=== PATIENT | male | born 1950 | race Caucasian/White ===

== ENCOUNTER 2017-09-05 18:25 | Inpatient (IN) | payer MEDICARE, OTHER ==
[~2017-09-05] VITALS: Ht 170.2 cm; Wt 79.8 kg
[2017-09-05] MEDS ORDERED: ALBU8HFA4 IH (18:35)
[2017-09-05] MEDS ORDERED: FLUO10CA26 PO (18:35)
[2017-09-05] MEDS ORDERED: DOXE25CA3 PO (18:35)
[2017-09-05] MEDS ORDERED: LEVO75TA7 PO (18:35)
[2017-09-05] MEDS ORDERED: LEVO750T46 PO (18:35)
[2017-09-05] MEDS ORDERED: SERT50TA PO (18:35)
[2017-09-05] MEDS ORDERED: DISU250T7 PO (18:35)
[2017-09-05] MEDS ORDERED: FLUO40CA49 PO (18:35)
[2017-09-05] MEDS ORDERED: THIA100T13 PO (18:35)
--- NOTE | 2017-09-05 18:50 | NUR ---
PATIENT IS HERE FOR POSSIBLE ADMISSION TO MHU. HE IS AWAKE AND ALERT IN NO DISTRESS. HE IS COOPERATIVE. HE IS SITTING UP EATING A SANDWICH.
--- NOTE | 2017-09-05 19:02 | NUR ---
REPORT TAKEN FROM DAY SHIFT RN. ASSUMING PT CARE AT THIS TIME.
--- NOTE | 2017-09-05 19:16 | NUR ---
XRAY AT PT BEDSIDE.
--- NOTE | 2017-09-05 19:38 | NUR ---
Patient medically cleared by ER MD, Dr Seaman, for inpatient admission to MHU. Patient will be going to room 141A, under Dr Gomes/Dr Vogt. Dx: Psychosis. Patient is currently on 5150 hold for SI. Patient states he has an active plan but does not disclose plan to staff at this time. Per original Hold document, patient endorsed plan to hang himself to [place] upon evaluation. Patient denies HI/AH/VH at this time. Room safety assessment complete, all belongings/high risk objects removed from room. Frequent staff assessments complete. Patient continues to be observed, and remains in direct rafael of balance staff staker at all times. Cooperative and redirectable. Patient in bed, VSS. All patient needs attended and met. No acute distress at this time. Respirations even and unlabored. no SOB or congestion noted. no cardiovascular distress noted. NSR on monitor at this time. No GI/ distress noted. Patient is continent of bowel and bladder function per initial evaluation.
--- NOTE | 2017-09-05 19:54 | NUR ---
Report given to Araceli SALGUERO on MHU
--- NOTE | 2017-09-05 19:59 | NUR ---
Pt. admitted to MHU, under care of Dr. Vogt Belongs List completed
[2017-09-05 20:10] VITALS: BP 129/64
[2017-09-05] MEDS ORDERED: MAG HYDROX/AL HYDROX/SIMETH 30 ML LIQUID UDC PO PRN (21:15)
[2017-09-05] MEDS ORDERED: TEMAZEPAM 7.5 MG CAPSULE PO PRN (21:15)
[2017-09-05] MEDS ORDERED: ACETAMINOPHEN 325 MG TABLET PO PRN (21:15)
[2017-09-05 21:30] VITALS: BP 129/64
[2017-09-05] MEDS ORDERED: ALBUTEROL SULFATE 8 GM HFA.AER.AD IH PRN (22:30)
--- NOTE | 2017-09-06 03:20 | NUR ---
Patient is a 67 year old male admitted@ 1999 on [facility] Unit, 5150 status DTS. Per 5150 statement, Patient had become extremely depressed and anxious. Verbalized a plan to hang himself. During 1:1 interview, Patient affirms his suicidality. Stated :" I'm going thru too much! I have some financial problems. My first . I miss her. My current spends alot of money that we can't really afford to loose. I'm anxious about the future. I have trouble sometimes focusing on it all. I don't know what to do." Patient able to contract for safety in facility environment. Verbalized commitment to seek out staff prior to acting on any self-harmful behavior patterns. No assaultive or aggressive behavior noted or reported. Will continue to monitor. Addendum: 09/06/17 at 0801 by JADA WILCOX RN Patient affirmed his ability to seek out staff for support prior to acting on any self harm behavior patters. Refused am Thyroid medication. Stated "The Doctor hasn't spoken with my about taking that yet, and I don't think I need that medication. Patient slept 7.00 hours. Close monitoring and observations continue.
[2017-09-06] MEDS: LEVOTHYROXINE SODIUM 75 MCG TABLET PO SCH (07:03)
[2017-09-06] MEDS ORDERED: ALBUTEROL SULFATE 2.5 MG/3 ML NEBU NEB PRN (07:15)
[2017-09-06 07:30] VITALS: BP 132/64
[2017-09-06 08:08] LABS: BASOPHILS % (AUTO) 0.6 % (0.0-2.0); EOSINOPHILS # (AUTO) 0.1 K/uL (0.0-0.7); EOSINOPHILS % (AUTO) 1.4 % (0.0-7.0); HEMATOCRIT 42.6 % (36.7-47.1); HEMOGLOBIN 14.5 g/dL (12.5-16.3); LYMPHOCYTES # (AUTO) 2.7 K/uL (20.0-40.0); LYMPHOCYTES % (AUTO) 31.9 % (20.5-51.5); MEAN CORPUSCULAR HEMOGLOBIN 30.3 uug (23.8-33.4); MEAN CORPUSCULAR HGB CONC 34 g/dL (32.5-36.3); MONOCYTES # (AUTO) 0.5 K/uL (2.0-10.0); MONOCYTES % (AUTO) 6.3 % (0.0-11.0); NEUTROPHILS # (AUTO) 5.1 K/uL (1.8-8.9); NEUTROPHILS % (AUTO) 59.8 % (38.5-71.5); PLATELET COUNT (AUTO) 249 K/uL (152-348); RED BLOOD CELL COUNT(AUTO) 4.78 MIL/uL (4.06-5.63); WHITE BLOOD COUNT (AUTO) 8.6 K/uL (3.6-10.2)
[2017-09-06 08:17] LABS: BILIRUBIN,TOTAL 0.4 mg/dL (0.2-1.0); PHOSPHOROUS 3.7 mg/dL (2.5-4.9); POTASSIUM 4.6 mmol/L (3.5-5.1); TOTAL PROTEIN, SERUM 6.7 g/dL (6.4-8.2)
[2017-09-06] MEDS: THIAMINE HCL 100 MG TABLET PO SCH (08:36)
[2017-09-06 09:07] LABS: THYROID STIMULATING HORMONE 1.151 mIU/mL (0.358-3.740)
[2017-09-06] MEDS: LORAZEPAM 1 MG TABLET PO PRN (10:47)
[2017-09-06] MEDS ORDERED: SERTRALINE HCL 50 MG TABLET PO SCH (12:15)
[2017-09-06] MEDS ORDERED: FLUVOXAMINE MALEATE 25 MG TABLET PO SCH (12:30)
--- NOTE | 2017-09-06 12:32 | NUR ---
CALLED FOR CONSULT PER 'S ORDERED '
[2017-09-06] MEDS: ARIPIPRAZOLE 2 MG TABLET PO SCH (12:48)
[2017-09-06] MEDS: OXCARBAZEPINE 300 MG TABLET PO SCH ×2 (12:48→16:31)
[2017-09-06] MEDS ORDERED: FLUVOXAMINE MALEATE 50 MG TABLET PO ONE (13:30)
--- NOTE | 2017-09-06 15:30 | NUR ---
GPS: Nursing Notes: Pneumonia Vaccination: Patient stated that he received his pneumonia vaccination at [facility] on 09/04/17, patient is A/Ox4, cooperative, continue with treatment plan.
[2017-09-06 15:48] VITALS: BP 131/67
[2017-09-06] MEDS: TRAZODONE 100 MG TABLET PO SCH (20:20)
[2017-09-06 20:31] VITALS: BP 147/64
--- NOTE | 2017-09-06 21:00 | NUR ---
RECEIVED PATIENT IN HIS ROOM. HE IS A/O X 3 HE IS ABLE TO AMBULATE WITH STEADY GAIT. HE WAS NOTED WITH DEPRESSED MOOD, BLUNTED AFFECT, WITHDRAWN. HE DENIES SI AT THIS TIME. HOWEVER, HE STATED THAT HE FEELS SAD AND DEPRESSED. HE WAS ABLE TO CFS. PT ABLE TO COMPLY WITH MEDICATION REGIMENT ND PLAN OF CARE DURING THE SHIFT. WILL CONTINUE TO MONITOR CLOSELY.
[2017-09-07] MEDS: LEVOTHYROXINE SODIUM 75 MCG TABLET PO SCH (06:42)
[2017-09-07 07:30] VITALS: BP 118/55
[2017-09-07] MEDS: OXCARBAZEPINE 300 MG TABLET PO SCH ×3 (08:19→16:34)
[2017-09-07] MEDS: ARIPIPRAZOLE 2 MG TABLET PO SCH (08:19)
[2017-09-07] MEDS: THIAMINE HCL 100 MG TABLET PO SCH (08:19)
[2017-09-07] MEDS: FLUVOXAMINE MALEATE 50 MG TABLET PO SCH (08:20)
--- NOTE | 2017-09-07 14:04 | NUR ---
Firearms Reporting: MARELY submitted Mental Health Report to [facility] on 09/07.
[2017-09-07 15:56] VITALS: BP 138/67
[2017-09-07 19:52] VITALS: BP 157/67
[2017-09-07] MEDS: TRAZODONE 100 MG TABLET PO SCH (20:01)
--- NOTE | 2017-09-07 22:00 | NUR ---
received to care, watching tv, pleasant upon approach. continues to deny suicidal ideations, but admits to feeling depressed. compliant with medications, and staff direction. as of 2199, he appears to be asleep. no distress noted. will continue to monitor closely.
--- NOTE | 2017-09-08 06:00 | NUR ---
slept 6.5 hours total. no distress noted.
[2017-09-08] MEDS: LEVOTHYROXINE SODIUM 75 MCG TABLET PO SCH (06:46)
[2017-09-08 07:30] VITALS: BP 117/65
[2017-09-08] MEDS: ARIPIPRAZOLE 2 MG TABLET PO SCH (08:38)
[2017-09-08] MEDS: OXCARBAZEPINE 300 MG TABLET PO SCH ×3 (08:38→17:23)
[2017-09-08] MEDS: THIAMINE HCL 100 MG TABLET PO SCH (08:39)
[2017-09-08] MEDS: FLUVOXAMINE MALEATE 50 MG TABLET PO SCH (08:39)
--- NOTE | 2017-09-08 10:39 | NUR ---
Initial DC Plan: Patient currently lives at home with his Gayla [[address] [place] [address]; [phone]]. SW will follow up with MD, patient, and patient's to discuss most appropriate discharge plans. SW will form a safe and proper discharge.
[2017-09-08] MEDS: LORAZEPAM 1 MG TABLET PO PRN (13:00)
[2017-09-08 17:08] VITALS: BP 139/68
[2017-09-08 20:00] VITALS: BP 139/60
[2017-09-08] MEDS: TRAZODONE 100 MG TABLET PO SCH (20:50)
--- NOTE | 2017-09-08 22:00 | NUR ---
received to care, sitting in his room, pleasant upon approach. continues to deny suicidal ideations, but admits to feeling depressed. compliant with medications, and staff direction. interacts minimally, with peers. as of 2199, he appears to be asleep. no distress noted. will continue to monitor closely.
[2017-09-09] MEDS: LEVOTHYROXINE SODIUM 75 MCG TABLET PO SCH (06:34)
[2017-09-09 07:30] VITALS: BP 127/70
--- NOTE | 2017-09-09 07:45 | NUR ---
RECEIVED PATIENT IN HIS ROOM. HE IS A/O X 3 HE IS ABLE TO AMBULATE WITH STEADY GAIT. NO SUICIDAL IDEATION NOTED PT ABLE TO COMPLY WITH MEDICATION REGIMENT ND PLAN OF CARE DURING THE SHIFT. WILL CONTINUE TO MONITOR CLOSELY.
[2017-09-09] MEDS: ARIPIPRAZOLE 5 MG TABLET PO SCH (08:16)
[2017-09-09] MEDS: THIAMINE HCL 100 MG TABLET PO SCH (08:16)
[2017-09-09] MEDS: FLUVOXAMINE MALEATE 50 MG TABLET PO SCH (08:16)
[2017-09-09] MEDS: OXCARBAZEPINE 300 MG TABLET PO SCH ×3 (08:16→16:05)
[2017-09-09] MEDS ORDERED: ARIPIPRAZOLE 2 MG TABLET PO SCH (09:00)
--- NOTE | 2017-09-09 10:59 | NUR ---
WATCHING TV NO C/O DEPRESSION OR ANY SUICIDAL IDEATION
[2017-09-09 16:00] VITALS: BP 131/64
[2017-09-09 20:00] VITALS: BP 117/55
[2017-09-09] MEDS: TRAZODONE 100 MG TABLET PO SCH (20:45)
[2017-09-10] MEDS: LEVOTHYROXINE SODIUM 75 MCG TABLET PO SCH (06:47)
[2017-09-10 07:30] VITALS: BP 127/70
[2017-09-10] MEDS ORDERED: FLUVOXAMINE MALEATE 50 MG TABLET PO SCH (09:00)
[2017-09-10] MEDS: ARIPIPRAZOLE 5 MG TABLET PO SCH (10:42)
[2017-09-10] MEDS: THIAMINE HCL 100 MG TABLET PO SCH (10:43)
[2017-09-10] MEDS: OXCARBAZEPINE 300 MG TABLET PO SCH ×3 (10:43→17:35)
[2017-09-10 15:47] VITALS: BP 153/65
--- NOTE | 2017-09-10 16:00 | NUR ---
Gps/Call Center Coordinator- Attends and participates in his group therapy, cooperative with staff, encouraged continued verbalizations of his feelings and needs, medication compliant.
--- NOTE | 2017-09-10 19:30 | NUR ---
Received patient from day shift nurse. Patient currently lying in bed comfortably with no signs of pain, sob, or acute distress. Pertinent assessment completed. On a 14 day hold. Currently no signs of depression or anxiety noted. Appears to be compliant. Vital signs WNL. Will continue to monitor through shift.
[2017-09-10 20:31] VITALS: BP 134/72
[2017-09-10] MEDS: TRAZODONE 100 MG TABLET PO SCH (21:00)
[2017-09-10] MEDS: MAGNESIUM HYDROXIDE 30 ML LIQUID UDC PO PRN (21:01)
[2017-09-11 07:30] VITALS: BP 134/68
[2017-09-11] MEDS: FLUVOXAMINE MALEATE 50 MG TABLET PO SCH (08:08)
[2017-09-11] MEDS: THIAMINE HCL 100 MG TABLET PO SCH (08:08)
[2017-09-11] MEDS: LEVOTHYROXINE SODIUM 75 MCG TABLET PO SCH (08:08)
[2017-09-11] MEDS: ARIPIPRAZOLE 5 MG TABLET PO SCH (08:08)
[2017-09-11] MEDS: OXCARBAZEPINE 300 MG TABLET PO SCH ×3 (08:08→17:07)
--- NOTE | 2017-09-11 10:03 | NUR ---
patient noted sitting in activities eating breakfast and watch TV, denies pain at this time, no signs of distress noted, took all AM medications, all needs met at this time, no behaviors noted
[2017-09-11] MEDS: LORAZEPAM 1 MG TABLET PO PRN (14:02)
[2017-09-11 15:00] VITALS: BP 154/68
--- NOTE | 2017-09-11 15:00 | NUR ---
Gps/Product/Device Technologist- Verbalized feelings of being anxious, requested anti anxiety pill, encouraged participation in his group therapy, encouraged continued verbalizations of his feelings .
--- NOTE | 2017-09-11 19:30 | NUR ---
Received patient from day shift nurse. Patient currently sitting in dining room at start of shift. No current signs of pain, sob, or acute distress noted. Pertinent assessment completed. Patient is alert, awake, oriented, and compliant. No signs or thoughts of suicidal ideation noted. patient stated that he still feels anxious at times and is concerned to go home. Patient stated that he has "many things in life that causes him stress". patient wants to talk with the doctor about his meds. Room checked for safety at start of shift. Bed in low position. Alarm on and checked. Will continue to monitor through shift.
[2017-09-11] MEDS: TRAZODONE 100 MG TABLET PO SCH (20:45)
[2017-09-11 21:49] VITALS: BP 140/64
[2017-09-12] MEDS: LEVOTHYROXINE SODIUM 75 MCG TABLET PO SCH (06:08)
--- NOTE | 2017-09-12 06:17 | NUR ---
Patient slept total of 9 hours through the night. No acute distress noted. No signs of suicidal ideation noted at this time. All needs attended to. All meds administered as ordered per MD. Safety measures implemented. Will endorse to day shift nurse.
[2017-09-12 07:30] VITALS: BP 128/53
[2017-09-12] MEDS: OXCARBAZEPINE 300 MG TABLET PO SCH ×3 (08:07→17:25)
[2017-09-12] MEDS: THIAMINE HCL 100 MG TABLET PO SCH (08:07)
[2017-09-12] MEDS: ARIPIPRAZOLE 5 MG TABLET PO SCH (08:09)
[2017-09-12] MEDS: FLUVOXAMINE MALEATE 50 MG TABLET PO SCH (08:09)
[2017-09-12] MEDS: LORAZEPAM 1 MG TABLET PO PRN (10:50)
--- NOTE | 2017-09-12 10:54 | NUR ---
Gps/Computer Customer Support Specialist- Noted extremely anxious , figity, shaky , ativan 1 mg 1 tab.po administered, encouraged to continue attending his group therapy, encouraged verbalizations of his feelings and needs. Continue the need to monitor patient for safety.
[2017-09-12 15:00] VITALS: BP 134/71
[2017-09-12 20:27] VITALS: BP 157/74
[2017-09-12] MEDS: TRAZODONE 100 MG TABLET PO SCH (21:07)
[2017-09-12] MEDS: MAGNESIUM HYDROXIDE 30 ML LIQUID UDC PO PRN (21:07)
--- NOTE | 2017-09-13 06:43 | NUR ---
Patient first observed in room laying in bed with fair appearance. Alert, oriented to person, time, place and situation. Appears to have a low mood and exhibits a flat affect. Patient compliant with medication, requested milk of magnesia to follow up with outcome. Continue to provide a safe environment as well monitor for safety. Patient slept a total of seven hours.
[2017-09-13] MEDS: LEVOTHYROXINE SODIUM 75 MCG TABLET PO SCH (06:55)
[2017-09-13 08:00] VITALS: BP 123/67
[2017-09-13] MEDS: ARIPIPRAZOLE 5 MG TABLET PO SCH (08:58)
[2017-09-13] MEDS: FLUVOXAMINE MALEATE 50 MG TABLET PO SCH (08:58)
[2017-09-13] MEDS: THIAMINE HCL 100 MG TABLET PO SCH (08:59)
[2017-09-13] MEDS: OXCARBAZEPINE 300 MG TABLET PO SCH ×3 (08:59→16:29)
--- NOTE | 2017-09-13 09:45 | NUR ---
Gps/Recreation Therapist- Attends and participates in hes group therapy .Compliant with her routine medications. Verbalized feelings of being anxious, offered prn, refused at this time, claimed he will try to attend his group therapy , to keep his mind of things. Monitor closely for safety.
[2017-09-13 16:32] VITALS: BP 137/68
[2017-09-13] MEDS: LORAZEPAM 1 MG TABLET PO PRN (19:46)
[2017-09-13 20:00] VITALS: BP 148/80
[2017-09-13] MEDS: TRAZODONE 100 MG TABLET PO SCH (21:12)
[2017-09-14] MEDS: LEVOTHYROXINE SODIUM 75 MCG TABLET PO SCH (06:28)
[2017-09-14 07:30] VITALS: BP 129/71
[2017-09-14] MEDS: OXCARBAZEPINE 300 MG TABLET PO SCH ×3 (09:19→16:52)
[2017-09-14] MEDS: FLUVOXAMINE MALEATE 50 MG TABLET PO SCH (09:19)
[2017-09-14] MEDS: ARIPIPRAZOLE 5 MG TABLET PO SCH (09:19)
[2017-09-14] MEDS: THIAMINE HCL 100 MG TABLET PO SCH (09:21)
[2017-09-14 15:13] VITALS: BP 137/65
[2017-09-14 20:00] VITALS: BP 144/73
[2017-09-14] MEDS: TRAZODONE 100 MG TABLET PO SCH (20:34)
--- NOTE | 2017-09-14 22:59 | NUR ---
RECEIVED PATIENT IN BED AWAKE IN HIS ROOM.A/O X3 PATIENT IS AMBULATORY, IS EASILY AGITATED. PATIENT IS HAVING THOUGHTS OF OCD, "I AM TRYING TO CONTROL WITHOUT MEDICATION." PATIENT REMAINS ISOLATIVE/WITHDRAWN ENCOURAGED TO EXPRESS FEELINGS AND CONCERNS. NO BEHAVIOR ISSUES NOTED, NO AGGRESSIVE OR COMBATIVE NOTED WILL CONTINUE TO MONITOR. PATIENT COMPLAINT WITH MEDICATION.
[2017-09-15] MEDS: LEVOTHYROXINE SODIUM 75 MCG TABLET PO SCH (06:18)
[2017-09-15 07:30] VITALS: BP 143/65
[2017-09-15] MEDS ORDERED: ARIPIPRAZOLE 10 MG TABLET PO SCH (09:00)
[2017-09-15] MEDS ORDERED: ARIPIPRAZOLE 5 MG TABLET PO SCH (09:00)
[2017-09-15] MEDS ORDERED: FLUVOXAMINE MALEATE 50 MG TABLET PO SCH (09:00)
--- NOTE | 2017-09-15 09:41 | NUR ---
DC Note: Patient will be discharged home [[address] [place] [address]; [phone]] via private transportation. SW spoke with patients [id number] Jennifer [[phone]] who stated patients Gayla will last picker patient around 12:30pm. Patient is aware and agreeable to discharge plans. Patient is alert and oriented x4 and denies current SI and HI. Patient will follow up with his psychiatrist Dr. Reyes [[address] [place] [id number]; ] and billet cutter Dr. Hawk [[address] [facility] [place] [address]; ]. Patient has an appointment with his psychiatrist Dr. Reyes on September 22 at 4pm. Patient was provided additional outpatient mental health referrals to [facility] [[phone]], [facility] [ ], and [facility] [[phone]].
[2017-09-15] MEDS: OXCARBAZEPINE 300 MG TABLET PO SCH ×2 (09:59→13:44)
[2017-09-15] MEDS: THIAMINE HCL 100 MG TABLET PO SCH (10:00)
[2017-09-15 10:41] VITALS: BP 143/65
--- NOTE | 2017-09-15 14:00 | NUR ---
GPS: Nursing Notes: Discharge Notes: Patient is awake and responding to his name, cooperative with nursing care, compliant with his medications, denies any SI/HI, denies any AH/VH, denies any pain or discomfort, denies any SOB, discharge home with his , Gayla at [address] [place] [address] , picked up by his - Gayla, instruction and prescriptions given to his , transported home via private vehicle. Patient will follow up with his psychiatrist Dr. Reyes [[address] [place] [id number]; ] and side guider Dr. Hawk [[address] [facility] [address] [facility] [place] [address]; ]. Patient has an appointment with his psychiatrist Dr. Reyes on September 22 at 4pm. Patient was provided additional outpatient mental health referrals to [facility] [[phone]], [facility] [ ], and [facility] Crisis Line [[phone]].
== END 2017-09-15 14:00 | disposition home or self-care (01) | DRG 885 ==
LOC: ER 18:27 → GPS 19:44
PROVIDERS: ADMIT Psychiatry & Neurology Psychiatry; ATTEND Internal Medicine
DX: F31.4 Bipolar disorder, current episode depressed, severe, without psychotic features (principal); E83.52 Hypercalcemia; E03.9 Hypothyroidism, unspecified; F42.8 Other obsessive-compulsive disorder; Z79.899 Other long term (current) drug therapy; E66.9 Obesity, unspecified; Z68.27 Body mass index [BMI] 27.0-27.9, adult
CPT/HCPCS: 36415; 71045; 82306; 83735; 84100; 84443; 85025; 93005; A4663

== ENCOUNTER 2018-01-12 11:45 | Inpatient (IN) | payer MEDICARE, BC ==
[~2018-01-12] VITALS: Ht 167.6 cm; Wt 70.8 kg
[~2018-01-12 11:45] MED LIST: DISU250T7 PO; LEVO750T46 PO; LEVO75TA7 PO; SERT50TA PO; THIA100T13 PO
--- NOTE | 2018-01-12 12:04 | NUR ---
PT IS IN ROOM #2B. DR MCDUFFIE EVALUATED THE PT.
--- NOTE | 2018-01-12 12:04 | NUR ---
IZZY OFFICERS BROUGHT PT TO [facility] ER. PT'S HOLD WAS WRITTEN BY IZZY OFFICER.
[2018-01-12] MEDS ORDERED: OLANZAPINE 5 MG TABLET PO ONE (12:15)
[2018-01-12] MEDS ORDERED: CETIRIZINE HCL 10 MG TABLET ONE (12:23)
[2018-01-12 12:34] LABS: BASOPHILS # (AUTO) 0.1 K/uL (0.0-8.0); BASOPHILS % (AUTO) 0.5 % (0.0-2.0); EOSINOPHILS # (AUTO) 0.1 K/uL (0.0-0.7); EOSINOPHILS % (AUTO) 0.7 % (0.0-7.0); HEMATOCRIT 42.1 % (36.7-47.1); LYMPHOCYTES # (AUTO) 2.4 K/uL (20.0-40.0); MEAN CORPUSCULAR HGB CONC 36 g/dL (32.5-36.3); MEAN CORPUSCULAR VOLUME 87.2 fL (73.0-96.2); MONOCYTES # (AUTO) 0.5 K/uL (2.0-10.0); MONOCYTES % (AUTO) 4.7 % (0.0-11.0); NEUTROPHILS # (AUTO) 7.5 K/uL (1.8-8.9); NEUTROPHILS % (AUTO) 71.1 % (38.5-71.5); PLATELET COUNT (AUTO) 284 K/uL (152-348); RED BLOOD CELL COUNT(AUTO) 4.83 MIL/uL (4.06-5.63); WHITE BLOOD COUNT (AUTO) 10.5 K/uL (3.6-10.2)
[2018-01-12 12:36] LABS: CARBON DIOXIDE 24 mmol/L (21-32); CHLORIDE 100 mmol/L (98-107); CREATININE 0.9 mg/dL (0.6-1.3); GLUCOSE 130 mg/dL (74-106); UREA NITROGEN, BLOOD 9 mg/dL (7-18)
[2018-01-12 12:38] LABS: ETHANOL < 3 MG/DL (0-0)
[2018-01-12 12:42] LABS: ACETAMINOPHEN < 2.0 ug/mL (10-30); ALANINE AMINOTRANSFERASE 59 U/L (16-63); ALKALINE PHOSPHATASE 167 U/L (50-136); ASPARTATE AMINOTRANSFERASE 24 U/L (15-37); BILIRUBIN,DIRECT 0.2 mg/dL (0.0-0.2); BILIRUBIN,TOTAL 0.6 mg/dL (0.2-1.0); TOTAL PROTEIN, SERUM 7.3 g/dL (6.4-8.2)
[2018-01-12] MEDS ORDERED: MAGN400O6 PO (12:48)
[2018-01-12] MEDS ORDERED: DOCU100C36 PO (12:48)
[2018-01-12] MEDS ORDERED: ALLO300T2 PO (12:48)
[2018-01-12] MEDS ORDERED: ATOR20TA PO (12:48)
[2018-01-12] MEDS ORDERED: ACET325T53 PO (12:48)
[2018-01-12] MEDS ORDERED: PANT40TA2 PO (12:48)
[2018-01-12] MEDS ORDERED: QUET25TA PO ×2 (12:48)
[2018-01-12] MEDS ORDERED: LAMO100T PO (12:48)
[2018-01-12] MEDS ORDERED: ESCI10TA PO (12:48)
[2018-01-12] MEDS ORDERED: SENN-22 PO (12:48)
[2018-01-12] MEDS ORDERED: OXCA600T5 PO (12:48)
--- NOTE | 2018-01-12 13:08 | NUR ---
PATIENT IS MEDICALLY CLEARED
--- NOTE | 2018-01-12 13:18 | NUR ---
Pt. admitted to MHU , under care of / DIO Belongs List completed.
--- NOTE | 2018-01-12 13:35 | NUR ---
REPORT GIVEN TO RN MHU. PT WAS TRANSFERED TO ROOM #137B.
--- NOTE | 2018-01-12 13:39 | NUR ---
ACCORDING TO REGAN FROM [facility] INTAKE OFFICE ADMITTING PSYCHIATRIST IS DR MADDEN.
[2018-01-12] MEDS ORDERED: MAG HYDROX/AL HYDROX/SIMETH 30 ML LIQUID UDC PO PRN (14:45)
[2018-01-12 15:32] VITALS: BP 148/78
--- NOTE | 2018-01-12 16:02 | NUR ---
GPS: Nursing Notes: Severe Agitation/Anxiety: Patient awake and pacing around the unit, poor anger management, resistant with nursing care, feeling frustrated, stating, "I do not want to be here... I cannot help it...", anxious affect, restless, unable to follow directions, setting limits, "I need help..", Dr. Julian carrillo, continue with treatment plan.
[2018-01-12] MEDS: ESCITALOPRAM OXALATE 10 MG TABLET PO SCH (16:12)
[2018-01-12] MEDS: MAGNESIUM HYDROXIDE 30 ML LIQUID UDC PO PRN (16:12)
[2018-01-12] MEDS: CLONAZEPAM 0.5 MG TABLET PO PRN (16:13)
[2018-01-12] MEDS ORDERED: OLANZAPINE 10 MG VIAL IM STA (16:22)
[2018-01-12] MEDS ORDERED: LORAZEPAM 2 MG/1 ML VIAL IM STA (16:22)
--- NOTE | 2018-01-12 16:44 | NUR ---
GPS: Nursing Notes: Chemical Restraint: Continue to be loud and angry affect, feeling frustrated, stating "I do not want to be here..", episodes of shouting, overly disruptive, restless, seating down and rocking his body on the chair, anxious affect, medicated with Zyprexa 5mg IM and Ativan 1mg IM STAT, R=18, continue to monitor patient, continue with treatment plan.
--- NOTE | 2018-01-12 17:14 | NUR ---
GPS: Nursing Notes: Reassessment of Chemical Restraint: Patient is awake and responding to his name, patient is calmed, following staff directions, cooperative with nursing care at this time, continue to monitor for safety, R=18, continue with treatment plan.
--- NOTE | 2018-01-12 19:40 | NUR ---
RECEIVED PATIENT IN HIS ROOM ASLEEP. HOWEVER, EASILY AROUSABLE. REFUSED TO ANSWER ANY QUESTIONS AND WHEN BACK TO SLEEP. SAFETY WAS EMPHASIS. BED AT LOWEST POSITION WITH WHEELS LOCKED, BED ALARM ON AND FREQUENT HEAD CHECKS. WILL CONTINUE TO MONITOR CLOSELY.
[2018-01-12 20:00] VITALS: BP 125/72
[2018-01-12] MEDS: OLANZAPINE 5 MG TABLET PO SCH (21:00)
--- NOTE | 2018-01-12 22:00 | NUR ---
ZYPREXA 5MG PO QHS WAS HELD DUE TO PATIENT IS ASLEEP. WILL CONTINUE TO MONITOR CLOSELY.
[2018-01-13 07:30] VITALS: BP 134/69
[2018-01-13] MEDS: ESCITALOPRAM OXALATE 10 MG TABLET PO SCH (08:26)
--- NOTE | 2018-01-13 10:03 | NUR ---
PATIENT RESTING IN BED, AWAKE. COOPERATIVE WITH MEDICATION. HE IS CONCERN ABOUT HIS REGULAR MEDICATION. WILL FOLLOW UP WITH MD TO RECONCILE MEDICATION. SAFETY AND COMFORT PROVIDED. WILL CONTINUE MONITORING.
[2018-01-13] MEDS ORDERED: ALLOPURINOL 300 MG TABLET PO SCH (10:30)
[2018-01-13] MEDS ORDERED: OXCA600T5 PO (10:47)
[2018-01-13] MEDS ORDERED: LAMO100T PO (10:48)
[2018-01-13] MEDS: PANTOPRAZOLE SODIUM 40 MG TABLET.DR PO SCH (11:15)
[2018-01-13] MEDS: DOCUSATE SODIUM 100 MG CAPSULE PO SCH (11:16)
[2018-01-13] MEDS: LEVOTHYROXINE SODIUM 75 MCG TABLET PO SCH (11:16)
[2018-01-13] MEDS: ALLOPURINOL 300 MG TABLET PO SCH (13:22)
[2018-01-13 15:10] LABS: *BILIRUBIN,URIN NEGATIVE (NEGATIVE); *BLOOD, URINE NEGATIVE (NEGATIVE); *CLARITY,URINE CLEAR (CLEAR); *COLOR,URINE YELLOW (YELLOW); *KETONES,URINE NEGATIVE (NEGATIVE); *PROTEIN,URINE NEGATIVE (NEGATIVE); *UROBILINOGEN,URINE 0.2 E.U./dl (NORMAL); LEUKOCYTE ESTERASE ,URINE TRACE (NEGATIVE); NITRITE, URINE NEGATIVE (NEGATIVE); PH,URINE 7.5 (5.0-8.0); UGLUCOSE NEGATIVE (NEGATIVE)
[2018-01-13 16:06] VITALS: BP 136/67
[2018-01-13] MEDS: CEPHALEXIN MONOHYDRATE 500 MG CAPSULE PO SCH ×2 (17:09→21:15)
[2018-01-13] MEDS ORDERED: LAMOTRIGINE 100 MG TABLET PO ONE (17:45)
[2018-01-13] MEDS: CLONAZEPAM 0.5 MG TABLET PO PRN (17:55)
--- NOTE | 2018-01-13 17:59 | NUR ---
PATIENT BEEN IN BED AWAKE, AND WALKING AROUND THE UNIT DURING THE DAY. COMPLIANT WITH MEDICATIONS. CALLED [facility] TO GET HIS USUAL MEDICATION, IT WAS ENTERED IN THE COMPUTER. PATIENT WAS WORRIED ABOUT NOT GETTING HIS MEDICATION TODAY, HE STATED IF DOES NOT GET IT EVERYDAY, HE MIGHT GET A RASH ON HIS FACE. MICHAEL, CHARGE NURSE FOLLOW UP WITH DR. CAMACHO ABOUT PSYCH MED RECONCILIATION. IT WAS CONSENTED BY DR. COULTER. ONE DOSE OF LAMICTAL WAS GIVEN. PATIENT NOW BECAME ANXIOUS SAYING THAT HE WANTS TO SCREAM, "IM HAVING TO MANY PROBLEMS" HE IS CONCERN OF HIS FINANCIAL SITUATION BECAUSE HE IS BEEN IN AND OUT DIFFERENT FACILITIES. I GAVE HIM CLONOPIN FOR ANXIETY. WILL CONTINUE MONITORING.
[2018-01-13 20:25] VITALS: BP 105/62
[2018-01-13] MEDS: OLANZAPINE 5 MG TABLET PO SCH (21:15)
[2018-01-13] MEDS: ATORVASTATIN 20 MG TABLET PO SCH (21:15)
[2018-01-13] MEDS: SENNOSIDES/DOCUSATE SODIUM TABLET PO SCH (21:15)
[2018-01-13] MEDS: TEMAZEPAM 7.5 MG CAPSULE PO PRN (22:27)
[2018-01-14] MEDS: PANTOPRAZOLE SODIUM 40 MG TABLET.DR PO SCH (06:32)
[2018-01-14] MEDS: LEVOTHYROXINE SODIUM 75 MCG TABLET PO SCH (06:32)
[2018-01-14] MEDS: CEPHALEXIN MONOHYDRATE 500 MG CAPSULE PO SCH ×3 (06:32→21:53)
[2018-01-14 07:30] VITALS: BP 111/63
[2018-01-14 08:43] LABS: BASOPHILS % (AUTO) 0.6 % (0.0-2.0); EOSINOPHILS # (AUTO) 0.2 K/uL (0.0-0.7); HEMATOCRIT 41.9 % (36.7-47.1); HEMOGLOBIN 14.6 g/dL (12.5-16.3); LYMPHOCYTES # (AUTO) 2.4 K/uL (20.0-40.0); LYMPHOCYTES % (AUTO) 32.4 % (20.5-51.5); MEAN CORPUSCULAR HGB CONC 35 g/dL (32.5-36.3); MEAN CORPUSCULAR VOLUME 89.1 fL (73.0-96.2); MONOCYTES # (AUTO) 0.5 K/uL (2.0-10.0); MONOCYTES % (AUTO) 6.1 % (0.0-11.0); NEUTROPHILS # (AUTO) 4.4 K/uL (1.8-8.9); NEUTROPHILS % (AUTO) 58.9 % (38.5-71.5); PLATELET COUNT (AUTO) 259 K/uL (152-348); WHITE BLOOD COUNT (AUTO) 7.5 K/uL (3.6-10.2)
[2018-01-14 08:55] LABS: BILIRUBIN,TOTAL 0.4 mg/dL (0.2-1.0); MAGNESIUM 2.1 mg/dL (1.8-2.4); PHOSPHOROUS 3.9 mg/dL (2.5-4.9); POTASSIUM 4.1 mmol/L (3.5-5.1); TOTAL PROTEIN, SERUM 6.8 g/dL (6.4-8.2)
[2018-01-14 09:05] LABS: THYROID STIMULATING HORMONE 0.98 mIU/mL (0.358-3.740)
[2018-01-14] MEDS: ESCITALOPRAM OXALATE 10 MG TABLET PO SCH (09:08)
[2018-01-14] MEDS: LAMOTRIGINE 100 MG TABLET PO SCH (09:08)
[2018-01-14] MEDS: ALLOPURINOL 300 MG TABLET PO SCH (09:08)
[2018-01-14] MEDS: DOCUSATE SODIUM 100 MG CAPSULE PO SCH (09:08)
[2018-01-14] MEDS ORDERED: LORAZEPAM 2 MG/1 ML VIAL IM ONE (12:00)
--- NOTE | 2018-01-14 12:00 | NUR ---
Gps/School Admissions Representative- Patient noted pacing walking briskly around the hallway, walking back and fort , both arms are stiff,straight , and yelling and loud , difficulty in christiano for his safety, not re directable, Unix Administrator notified Psychiatrist, orders received.,(ativan 1 mg IM).
[2018-01-14 16:00] VITALS: BP 138/74
--- NOTE | 2018-01-14 17:00 | NUR ---
Gps/Statement Clerks Supervisor- Patient was quiet this pm. observed, attending group , and watching TV, compliant, was redirectable.
[2018-01-14] MEDS: SENNOSIDES/DOCUSATE SODIUM TABLET PO SCH (21:00)
[2018-01-14 21:41] VITALS: BP 102/57
[2018-01-14] MEDS: ATORVASTATIN 20 MG TABLET PO SCH (21:53)
[2018-01-14] MEDS: OLANZAPINE 5 MG TABLET PO SCH (21:53)
[2018-01-15] MEDS: CEPHALEXIN MONOHYDRATE 500 MG CAPSULE PO SCH (06:11)
[2018-01-15] MEDS: LEVOTHYROXINE SODIUM 75 MCG TABLET PO SCH (06:11)
[2018-01-15] MEDS: PANTOPRAZOLE SODIUM 40 MG TABLET.DR PO SCH (06:11)
[2018-01-15 07:30] VITALS: BP 112/67
[2018-01-15 08:26] VITALS: BP 112/67
[2018-01-15] MEDS: LAMOTRIGINE 100 MG TABLET PO SCH (08:48)
[2018-01-15] MEDS: ESCITALOPRAM OXALATE 10 MG TABLET PO SCH (08:48)
[2018-01-15] MEDS: ALLOPURINOL 300 MG TABLET PO SCH (08:48)
[2018-01-15] MEDS: DOCUSATE SODIUM 100 MG CAPSULE PO SCH (08:48)
[2018-01-15] MEDS: CLONAZEPAM 0.5 MG TABLET PO PRN (08:57)
[2018-01-15 09:29] LABS: *AMPHETAMINE, URINE NEGATIVE (NEGATIVE); *BARBITURATE, URINE NEGATIVE (NEGATIVE); *CANNABINOID, URINE NEGATIVE (NEGATIVE); *COCCAINE, URINE NEGATIVE (NEGATIVE); *OPIATE, URINE NEGATIVE (NEGATIVE); *PHENCYCLIDINE SCREEN,URINE NEGATIVE (NEGATIVE)
--- NOTE | 2018-01-15 14:12 | NUR ---
Gps/Director Of Home Care Hospice B/P 133/86 HR 90, resp. 18 02 sat 96%. 3 staff to assist in taking her vital signs, patient had been refusing. Boost drinks supplements offered , noted patient responding fairly well to her daughter 's instructions on the phone.
--- NOTE | 2018-01-15 14:17 | NUR ---
Initial DC Plan: Patient currently resides at [facility] [[address] [place] [address]; ]. MARELY spoke with Shantal from [facility] who stated they cannot accept patient back. MARELY will follow up with MD, patient, and patient's Gayla [[phone]] to discuss most appropriate discharge plans. MARELY will form a safe and proper discharge.
[2018-01-15] MEDS: AMPICILLIN 500 MG CAPSULE PO SCH ×2 (15:23→19:13)
[2018-01-15 15:49] VITALS: BP 98/54
[2018-01-15 17:32] LABS: *BILIRUBIN,URIN NEGATIVE (NEGATIVE); *BLOOD, URINE NEGATIVE (NEGATIVE); *CLARITY,URINE CLEAR (CLEAR); *KETONES,URINE NEGATIVE (NEGATIVE); *PROTEIN,URINE NEGATIVE (NEGATIVE); *UROBILINOGEN,URINE 0.2 E.U./dl (NORMAL); LEUKOCYTE ESTERASE ,URINE NEGATIVE (NEGATIVE); NITRITE, URINE NEGATIVE (NEGATIVE); UGLUCOSE NEGATIVE (NEGATIVE)
[2018-01-15 17:41] LABS: *COLOR,URINE LIGHT YELLOW (YELLOW)
[2018-01-15 17:42] LABS: WBC,URINE 0-3 /HPF (0-3)
[2018-01-15] MEDS: ATORVASTATIN 20 MG TABLET PO SCH (20:41)
[2018-01-15] MEDS: OLANZAPINE 5 MG TABLET PO SCH (20:41)
[2018-01-15] MEDS: SENNOSIDES/DOCUSATE SODIUM TABLET PO SCH (20:42)
[2018-01-15 21:46] VITALS: BP 118/65
[2018-01-15] MEDS: TEMAZEPAM 7.5 MG CAPSULE PO PRN (23:54)
[2018-01-16] MEDS: AMPICILLIN 500 MG CAPSULE PO SCH ×2 (00:22→06:26)
[2018-01-16] MEDS: CLONAZEPAM 0.5 MG TABLET PO PRN ×3 (00:38→16:03)
[2018-01-16] MEDS: LEVOTHYROXINE SODIUM 75 MCG TABLET PO SCH (06:26)
[2018-01-16] MEDS: PANTOPRAZOLE SODIUM 40 MG TABLET.DR PO SCH (06:26)
[2018-01-16 07:30] VITALS: BP 131/76
[2018-01-16] MEDS: ESCITALOPRAM OXALATE 10 MG TABLET PO SCH (08:28)
[2018-01-16] MEDS: DOCUSATE SODIUM 100 MG CAPSULE PO SCH (08:29)
[2018-01-16] MEDS: LAMOTRIGINE 100 MG TABLET PO SCH (08:29)
[2018-01-16] MEDS: ALLOPURINOL 300 MG TABLET PO SCH (08:29)
[2018-01-16 15:43] VITALS: BP 120/63
--- NOTE | 2018-01-16 19:40 | NUR ---
RECEIVED PATIENT IN HIS ROOM IN BED. HE IS NOTED AWAKE A/O X 3, ABLE TO AMBULATE WITH STEADY GAIT. HE IS NOTED WITH DEPRESSED MOOD, BLUNTED AFFECT, WITHDRAWAL TO HIS ROOM. UPON INTERVIEW, HE STATED THAT HE IS STILL FEELING SAD, ANXIOUS, HOPELESS. HE STATED, "I DON'T UNDERSTAND WHAT IS HAPPENING TO ME. I DON'T UNDERSTAND WHY I AM FEELING THIS WAY, I WAS NOT LIKE THAT. I THINK I TOO SOON AFTER I LOST MY OF 35 YEARS." "I HOPE THEY CAN HELP ME, I DO NOT WANT TO FEEL THIS WAY". PATIENT WAS REASSURED AND REDIRECTED. [employer] NOTED TO THE REASON FOR HIS ADMISSION. HE IS ABLE TO CFS. DENIES SI/AH/VH AT THIS TIME. CONTINUE COMPLIANT WITH MEDICATION REGIMENT, DIET AND PLAN OF CARE. SAFETY WAS EMPHASIS. WILL CONTINUE TO MONITOR CLOSELY.
[2018-01-16 20:00] VITALS: BP 100/58
[2018-01-16] MEDS: OLANZAPINE 5 MG TABLET PO SCH (21:11)
[2018-01-16] MEDS: ATORVASTATIN 20 MG TABLET PO SCH (21:11)
[2018-01-16] MEDS: SENNOSIDES/DOCUSATE SODIUM TABLET PO SCH (21:12)
[2018-01-17] MEDS: LEVOTHYROXINE SODIUM 75 MCG TABLET PO SCH (06:41)
[2018-01-17] MEDS: PANTOPRAZOLE SODIUM 40 MG TABLET.DR PO SCH (06:41)
[2018-01-17 07:30] VITALS: BP 128/69
[2018-01-17] MEDS: DOCUSATE SODIUM 100 MG CAPSULE PO SCH (08:43)
[2018-01-17] MEDS: ESCITALOPRAM OXALATE 10 MG TABLET PO SCH (08:43)
[2018-01-17] MEDS: LAMOTRIGINE 100 MG TABLET PO SCH (08:43)
[2018-01-17] MEDS: ALLOPURINOL 300 MG TABLET PO SCH (08:44)
[2018-01-17 15:53] VITALS: BP 106/55
[2018-01-17] MEDS: SENNOSIDES/DOCUSATE SODIUM TABLET PO SCH (21:27)
[2018-01-17] MEDS: ATORVASTATIN 20 MG TABLET PO SCH (21:27)
[2018-01-17] MEDS: OLANZAPINE 5 MG TABLET PO SCH (21:27)
[2018-01-17 21:28] VITALS: BP 114/60
[2018-01-18] MEDS: ACETAMINOPHEN 325 MG TABLET PO PRN ×3 (01:59→17:07)
[2018-01-18] MEDS: CLONAZEPAM 0.5 MG TABLET PO PRN ×4 (01:59→17:07)
[2018-01-18] MEDS: PANTOPRAZOLE SODIUM 40 MG TABLET.DR PO SCH (06:48)
[2018-01-18] MEDS: LEVOTHYROXINE SODIUM 75 MCG TABLET PO SCH (06:48)
[2018-01-18 07:30] VITALS: BP 119/64
[2018-01-18 07:54] LABS: BASOPHILS # (AUTO) 0.1 K/uL (0.0-8.0); BASOPHILS % (AUTO) 1.1 % (0.0-2.0); EOSINOPHILS # (AUTO) 0.2 K/uL (0.0-0.7); EOSINOPHILS % (AUTO) 2.6 % (0.0-7.0); HEMATOCRIT 41.6 % (36.7-47.1); HEMOGLOBIN 14.1 g/dL (12.5-16.3); LYMPHOCYTES # (AUTO) 2.8 K/uL (20.0-40.0); LYMPHOCYTES % (AUTO) 42.1 % (20.5-51.5); MEAN CORPUSCULAR HEMOGLOBIN 30.5 uug (23.8-33.4); MEAN CORPUSCULAR HGB CONC 34 g/dL (32.5-36.3); MEAN CORPUSCULAR VOLUME 89.9 fL (73.0-96.2); MONOCYTES # (AUTO) 0.4 K/uL (2.0-10.0); MONOCYTES % (AUTO) 6.2 % (0.0-11.0); NEUTROPHILS # (AUTO) 3.2 K/uL (1.8-8.9); PLATELET COUNT (AUTO) 243 K/uL (152-348); RED BLOOD CELL COUNT(AUTO) 4.63 MIL/uL (4.06-5.63); WHITE BLOOD COUNT (AUTO) 6.7 K/uL (3.6-10.2)
[2018-01-18 08:11] LABS: BILIRUBIN,TOTAL 0.5 mg/dL (0.2-1.0); PHOSPHOROUS 3.2 mg/dL (2.5-4.9); TOTAL PROTEIN, SERUM 6.4 g/dL (6.4-8.2)
[2018-01-18] MEDS: DOCUSATE SODIUM 100 MG CAPSULE PO SCH (09:11)
[2018-01-18] MEDS: ESCITALOPRAM OXALATE 10 MG TABLET PO SCH (09:12)
[2018-01-18] MEDS: LAMOTRIGINE 100 MG TABLET PO SCH (09:12)
[2018-01-18] MEDS: ALLOPURINOL 300 MG TABLET PO SCH (09:12)
[2018-01-18] MEDS: OLANZAPINE 2.5 MG TABLET PO SCH (12:34)
[2018-01-18 13:00] VITALS: BP 119/59
[2018-01-18 19:30] VITALS: BP 109/63
--- NOTE | 2018-01-18 19:50 | NUR ---
RECEIVED PATIENT IN HIS ROOM IN BED. HE IS NOTED AWAKE A/O X 3, CALM AND PLEASANT UPON APPROACHED. HE IS ABLE TO AMBULATE WITH STEADY GAIT. HE IS NOTED WITH DEPRESSED MOOD, BLUNTED AFFECT; HOWEVER LESS WITHDRAWAL. UPON INTERVIEW, HE STATED "ZYPREXA WORKED AT THE BEGINNING, BUT NOW, IT IS NOT WORKING ANYMORE". "MY DOCTOR DOES NOT LISTEN TO ME". PATIENT WAS REASSURED AND REDIRECTED. ENCOURAGE TO VERBALIZED FEELINGS. DENIES SI/AH/VH AT THIS TIME. HE IS ABLE TO CFS. CONTINUE COMPLIANT WITH MEDICATION REGIMENT, DIET AND PLAN OF CARE. PATIENT REQUESTED INFORMATION ABOUT HIS MEDICATION REGIMENT AND WAS PROVIDED. SAFETY WAS EMPHASIS. WILL CONTINUE TO MONITOR CLOSELY.
[2018-01-18] MEDS: SENNOSIDES/DOCUSATE SODIUM TABLET PO SCH (21:11)
[2018-01-18] MEDS: OLANZAPINE 5 MG TABLET PO SCH (21:11)
[2018-01-18] MEDS: ATORVASTATIN 20 MG TABLET PO SCH (21:11)
[2018-01-19] MEDS: LEVOTHYROXINE SODIUM 75 MCG TABLET PO SCH (06:52)
[2018-01-19] MEDS: PANTOPRAZOLE SODIUM 40 MG TABLET.DR PO SCH (06:52)
[2018-01-19 07:30] VITALS: BP 112/65
[2018-01-19] MEDS ORDERED: ESCITALOPRAM OXALATE 10 MG TABLET PO SCH (09:00)
[2018-01-19] MEDS: DOCUSATE SODIUM 100 MG CAPSULE PO SCH (09:05)
[2018-01-19] MEDS: OLANZAPINE 2.5 MG TABLET PO SCH ×3 (09:06→15:44)
[2018-01-19] MEDS: ACETAMINOPHEN 325 MG TABLET PO PRN (09:06)
[2018-01-19] MEDS: LAMOTRIGINE 100 MG TABLET PO SCH (09:06)
[2018-01-19] MEDS: ALLOPURINOL 300 MG TABLET PO SCH (09:06)
[2018-01-19] MEDS: CLONAZEPAM 0.5 MG TABLET PO PRN (09:06)
[2018-01-19 13:08] LABS: HEPATITIS A AB, IgM Negative (Negative); HEPATITIS B SURFACE AG Negative (Negative)
--- NOTE | 2018-01-19 13:57 | NUR ---
Received patient awake in sitting in bed. Alert and orientedx3. no signs of behavioral problem noted. Continue monitor for safety. Patient became anxious and clonazepam 0.5mg PRN every 6 hours and tylenol 325mg 2 tabs given for pain. not in distress. will continue monitor
[2018-01-19 15:52] VITALS: BP 99/52
[2018-01-19 19:30] VITALS: BP 103/53
[2018-01-19] MEDS: ATORVASTATIN 20 MG TABLET PO SCH (21:26)
[2018-01-19] MEDS: SENNOSIDES/DOCUSATE SODIUM TABLET PO SCH (21:26)
[2018-01-19] MEDS: OLANZAPINE 5 MG TABLET PO SCH (21:26)
[2018-01-20] MEDS: PANTOPRAZOLE SODIUM 40 MG TABLET.DR PO SCH (06:23)
[2018-01-20] MEDS: LEVOTHYROXINE SODIUM 75 MCG TABLET PO SCH (06:23)
[2018-01-20 07:30] VITALS: BP 110/61
[2018-01-20] MEDS: OLANZAPINE 2.5 MG TABLET PO SCH ×3 (09:42→17:37)
[2018-01-20] MEDS: ESCITALOPRAM OXALATE 10 MG TABLET PO SCH (09:42)
[2018-01-20] MEDS: DOCUSATE SODIUM 100 MG CAPSULE PO SCH (09:42)
[2018-01-20] MEDS: ALLOPURINOL 300 MG TABLET PO SCH (09:42)
[2018-01-20] MEDS: LAMOTRIGINE 100 MG TABLET PO SCH (09:42)
--- NOTE | 2018-01-20 12:31 | NUR ---
Spoke to RN, pt lost 6# in 6 days (3.7%) which is significant, requested reweigh pt and continue to monitor weight. P/t intake 75-100%, nurse requested ONS. Will add Ensure Enlive ONS QD. Pt also noted constipation (01/19), BM every other day, will add prune juice QD. Addendum: 01/20/18 at [address] Amended: Links added.
[2018-01-20 15:00] VITALS: BP 108/55
[2018-01-20] MEDS ORDERED: BISACODYL 5 MG TABLET.DR PO PRN (19:45)
--- NOTE | 2018-01-20 19:50 | NUR ---
RECEIVED PATIENT IN HIS ROOM IN BED. HE IS NOTED AWAKE A/O X 3, ABLE TO AMBULATE WITH STEADY GAIT. HE IS NOTED LESS DEPRESSED, CONTINUE WITH BLUNTED AFFECT, WITHDRAWAL TO HIS ROOM. UPON INTERVIEW, HE STATED THAT HIS NEW MEDICATION REGIMENT IS "WORKING BETTER". HE DENIES SI/AH/VH ABLE TO CFS. CONTINUE COMPLIANT WITH MEDICATION REGIMENT, DIET AND PLAN OF CARE. SAFETY WAS EMPHASIS. WILL CONTINUE TO MONITOR CLOSELY.
[2018-01-20 20:19] VITALS: BP 117/59
[2018-01-20] MEDS: ATORVASTATIN 20 MG TABLET PO SCH (20:29)
[2018-01-20] MEDS: SENNOSIDES/DOCUSATE SODIUM TABLET PO SCH (20:29)
[2018-01-20] MEDS: OLANZAPINE 5 MG TABLET PO SCH (20:30)
[2018-01-21] MEDS: TEMAZEPAM 7.5 MG CAPSULE PO PRN (01:48)
--- NOTE | 2018-01-21 01:48 | NUR ---
PATIENT APPROACHED THE NURSING STATION, HE STATED THAT HE JUST HAD A "BAD DREAM' AND REQUESTED A "SLEEPING PILL." PATIENT WAS NOTED MILDLY AGITATED. TEMAZEPAM 7.5MG PO PRN WAS GIVEN FOR INSOMNIA PER PATIENT REQUEST AND NURSING ASSESSMENT. WILL CONTINUE TO MONITOR.
[2018-01-21] MEDS: CLONAZEPAM 0.5 MG TABLET PO PRN (04:50)
--- NOTE | 2018-01-21 05:05 | NUR ---
PATIENT APPROACHED THE NURSING STATION STATING, "I AM WORRY ABOUT CONSTIPATION, I WAS DOING SO GOOD AND NOW I AM FIXED ON CONSTIPATION. I CAN'T HELP IT TO WORRY". PATIENT WAS REASSURED/REDIRECTED. KLONOPIN 0.5MG PO PRN FOR ANXIETY/AGITATION WAS GIVEN. PATIENT HAD A BM YESTERDAY 01/20. HOWEVER, HE CONTINUE FIXED ON BEING CONSTIPATED. MULTIPLE REDIRECTION GIVEN. PRUNE JUICE WAS GIVEN. WE WILL CONTINUE TO MONITOR
[2018-01-21] MEDS: PANTOPRAZOLE SODIUM 40 MG TABLET.DR PO SCH (07:02)
[2018-01-21] MEDS: LEVOTHYROXINE SODIUM 75 MCG TABLET PO SCH (07:02)
[2018-01-21 07:10] LABS: BASOPHILS # (AUTO) 0.1 K/uL (0.0-8.0); BASOPHILS % (AUTO) 0.7 % (0.0-2.0); EOSINOPHILS # (AUTO) 0.1 K/uL (0.0-0.7); EOSINOPHILS % (AUTO) 1.7 % (0.0-7.0); HEMATOCRIT 40.2 % (36.7-47.1); HEMOGLOBIN 13.7 g/dL (12.5-16.3); LYMPHOCYTES # (AUTO) 2.9 K/uL (20.0-40.0); LYMPHOCYTES % (AUTO) 37.6 % (20.5-51.5); MEAN CORPUSCULAR HEMOGLOBIN 30.8 uug (23.8-33.4); MEAN CORPUSCULAR HGB CONC 34 g/dL (32.5-36.3); MEAN CORPUSCULAR VOLUME 90.6 fL (73.0-96.2); MONOCYTES # (AUTO) 0.4 K/uL (2.0-10.0); MONOCYTES % (AUTO) 5.3 % (0.0-11.0); NEUTROPHILS # (AUTO) 4.3 K/uL (1.8-8.9); NEUTROPHILS % (AUTO) 54.7 % (38.5-71.5); PLATELET COUNT (AUTO) 227 K/uL (152-348); RED BLOOD CELL COUNT(AUTO) 4.44 MIL/uL (4.06-5.63); WHITE BLOOD COUNT (AUTO) 7.8 K/uL (3.6-10.2)
[2018-01-21 07:27] LABS: BILIRUBIN,TOTAL 0.4 mg/dL (0.2-1.0); TOTAL PROTEIN, SERUM 6.2 g/dL (6.4-8.2)
[2018-01-21 09:04] VITALS: BP 130/59
[2018-01-21] MEDS: OLANZAPINE 2.5 MG TABLET PO SCH ×3 (09:42→16:55)
[2018-01-21] MEDS: DOCUSATE SODIUM 100 MG CAPSULE PO SCH (09:42)
[2018-01-21] MEDS: LAMOTRIGINE 100 MG TABLET PO SCH (09:42)
[2018-01-21] MEDS: ESCITALOPRAM OXALATE 10 MG TABLET PO SCH (09:42)
[2018-01-21] MEDS: ALLOPURINOL 300 MG TABLET PO SCH (09:43)
[2018-01-21 16:56] VITALS: BP 107/59
[2018-01-21 20:00] VITALS: BP 116/58
[2018-01-21] MEDS: ATORVASTATIN 20 MG TABLET PO SCH (21:33)
[2018-01-21] MEDS: SENNOSIDES/DOCUSATE SODIUM TABLET PO SCH (21:33)
[2018-01-21] MEDS: OLANZAPINE 5 MG TABLET PO SCH (21:33)
[2018-01-22] MEDS: MAGNESIUM HYDROXIDE 30 ML LIQUID UDC PO PRN (03:13)
--- NOTE | 2018-01-22 04:56 | NUR ---
Pt WOKE UP AND CAME TO NURSING STATION COMPLAINING THAT HE HASN'T BEEN ABLE TO HAVE A BOWEL MOVEMENT IN 2 DAYS. Pt STATED, "I'VE BEEN SITTING ON THE TOILET FOR A WHILE BUT I CAN'T PASS ANYTHING." Pt WAS OFFERED AND ADMINISTERED MILK OF MAGNESIA PO PRN. Pt WENT BACK TO SLEEP.
[2018-01-22] MEDS: PANTOPRAZOLE SODIUM 40 MG TABLET.DR PO SCH (06:19)
[2018-01-22] MEDS: LEVOTHYROXINE SODIUM 75 MCG TABLET PO SCH (06:19)
[2018-01-22 07:30] VITALS: BP 144/68
[2018-01-22] MEDS: ESCITALOPRAM OXALATE 10 MG TABLET PO SCH (08:21)
[2018-01-22] MEDS: OLANZAPINE 2.5 MG TABLET PO SCH ×2 (08:21→12:39)
[2018-01-22] MEDS: LAMOTRIGINE 100 MG TABLET PO SCH (08:21)
[2018-01-22] MEDS: DOCUSATE SODIUM 100 MG CAPSULE PO SCH (08:21)
[2018-01-22] MEDS: ALLOPURINOL 300 MG TABLET PO SCH (08:22)
--- NOTE | 2018-01-22 09:29 | NUR ---
DC Note: Patient will be discharged to [facility] [[address] [place] [address]; ] via ambulance. MARELY spoke with CJ at the facility who confirmed they can accept patient today. Patient is aware and agreeable to discharge plans. Patient is alert and oriented x4 and denies SI and HI. MARELY spoke with patient's Gayla [[phone]] who is aware and agreeable to discharge plans. Patient will follow up with Dr. Mena (Natural Resources Specialist) and Dr. Bonilla (Psychiatrist). Patient was provided with additional outpatient mental health resources to [facility] Crisis Line , [facility] , and the National Suicide Prevention Lifeline .
--- NOTE | 2018-01-22 13:20 | NUR ---
1100 Called [facility] spoke to RADHA Walker in charged of admission- report given regarding patient's medication to continue upon discharged, diagnosis and patient present behavior. 1300 Patient discharged to facility mentioned above via ambulance, fair condition, denies SI/HI. No delusion. No a/v hallucination noted.
== END 2018-01-22 13:00 | DRG 885 ==
LOC: ER 11:47 → GPS 13:50
PROVIDERS: ADMIT Psychiatry & Neurology Psychiatry; ATTEND Internal Medicine
DX: F31.30 Bipolar disorder, current episode depressed, mild or moderate severity, unspecified (principal); N39.0 Urinary tract infection, site not specified; Z86.59 Personal history of other mental and behavioral disorders; F41.9 Anxiety disorder, unspecified; E78.5 Hyperlipidemia, unspecified; F42.9 Obsessive-compulsive disorder, unspecified; L71.9 Rosacea, unspecified; R73.9 Hyperglycemia, unspecified; R74.0 Nonspecific elevation of levels of transaminase and lactic acid dehydrogenase [LDH]; E03.9 Hypothyroidism, unspecified; K59.00 Constipation, unspecified; E83.52 Hypercalcemia
CPT/HCPCS: 36415; 80307; 83735; 84100; 84443; 85025; 86705; 86709; 86803; 87077; 87086; 87340; A4663; G0480; G0480-TC; J0290; J2060; J2358